=== PATIENT | female | born 1945 | race Caucasian/White ===

== ENCOUNTER → 2019-05-08 | Outpatient (CLI) | payer MEDICARE, OTHER ==
[~2019-05-08] MED LIST: ESTROGEN/METHYL1 TA1 PO; FLEXERIL PO; NEPHROCAPS SOFT1 CAP PO; NORCO 5-325 TA1 EACH PO
--- NOTE | 2019-05-08 16:46 | CARDNUC ---
[place] [address] CARDIAC NUCLEAR IMAGING REPORT Name: REMBERTO MROA Room: [facility]#: [id number] Admission: 05/08/19 Attend Phys: Judson Paz DO Discharge: Date of : 49 Date of Service: 05/08/19 1645 Report #: [id number] THIS REPORT FOR: //name// APPROVED REPORT Study performed: 05/08/2019 14:25:40 Exam: Nuclear Stress Test Indication: Chest pain Patient Location: Out-Patient Stress Tech: César Garner Stress Nurse: Katherine Jacobo R.N. Ht: 5 ft 3 in Wt: 148 lbs BSA: 1.70 m2 BMI: 26.21 Medical History Medical History: Angina, Memory loss/Dementia. Medications: ASA 81 Mg Allergies: Penicillins Cardiac Risk Factors: Age Previous Cardiac Procedures: None Pretest Chest Pain Characteristics: No chest pain Exercise History: Indeterminate Physical Disabilities: Generalized weakness, Dementia. Meds Held (24 hrs): None Stress Test Details Stress Test: Pharmacologic stress was paired with low level exercise. Reason for pharmacologic stress test: Generalized weakness, Dementia.. HR Resting HR: 68 bpm Max Heart Rate (APMHR): 149 bpm Max HR Achieved: 132 bpm Target HR (85% APMHR): 126 bpm % of APMHR: 88 Recovery HR: 93 bpm BP Resting BP: 163/92 mmHg Max BP: 148/90 mmHg ECG Resting ECG: Sinus Rhythm Stress ECG: [place] [address] CARDIAC NUCLEAR IMAGING REPORT Name: REMBERTO MORA Room: [facility]#: [id number] Admission: 05/08/19 Attend Phys: Judson Paz DO Discharge: Date of : 49 Date of Service: 05/08/19 1645 Report #: [id number] Change: None Arrhythmia: VPC's Recovery ECG: Sinus Rhythm Recovery ST Change: None Recovery Arrhythmia: None Clinical Reason for Termination: Completed protocol Stress Symptoms: None Exercise duration: 4 min 00 sec Exercise capacity: 2.30 METs The patient tolerated walking Lexiscan protocol without significant cardiac symptoms. Nurse Comments A 73 year old female presented with recent C/O CP, patient is a poor historian r/t early dementia/Short Term Memory Loss. Patient tolerated walking Lexiscan well with no symptoms verbalized. Recovery unremarkable with PO caffeine, effective. Patient was escorted by staff to Nuclear Medicine for images. Patient was stable with no complaints at that time. Spouse at patient side. Stress ECG Conclusion The baseline 12-lead EKG shows sinus rhythm without significant ST or T wave abnormalities. EKGs obtained during and post Lexiscan infusion show sinus rhythm and sinus tachycardia without significant ST or T wave changes when compared to baseline. There were occasional unifocal premature PVCs in stress. NM EXAM: Myocardial Perfusion REST/STRESS Imaging Protocol: Rest Tc-99m/Stress Tc-99m 1 day Resting Data Rest SPECT myocardial perfusion imaging was performed in supine position 30 minutes following the intravenous injection of 11.3 mCi of Tc-99m Sestamibi. Time of rest injection: 13:05 The images were gated to evaluate regional wall motion and calculate left ventricular ejection fraction. Administration Route: IV Administration Site: Right Arm Pharmacologic Stress Pharmacologic stress test was performed by injecting Regadenoson 0.4 mg IV push followed by the intravenous injection of 35.5 mCi of Tc-99m [place] [address] CARDIAC NUCLEAR IMAGING REPORT Name: REMBERTO MORA Room: [facility]#: [id number] Admission: 05/08/19 Attend Phys: Judson Paz DO Discharge: Date of : 49 Date of Service: 05/08/19 1645 Report #: [id number] Time of stress injection: 14:40 Administration Route: IV Administration Site: Right Arm Heart Rate at time of stress injection: 132 bpm. Gated Stress SPECT was performed 40 minutes after stress injection. The images were gated to evaluate regional wall motion and calculate left ventricular ejection fraction. Prone imaging was performed. Study Quality Study: Good Artifact: No artifact Study Data At rest, the left ventricular ejection fraction was 77%.. Post stress, the left ventricular ejection was 67%.. TID = 1.00. Perfusion Normal left ventricular perfusion. Wall Motion Normal left ventricular wall motion. Nuclear Conclusion ECG Findings: negative for ischemia Clinical Findings: negative for ischemia Nuclear Findings: negative for ischemia Exercise Capacity: not assessed Left Ventricular Function: normal Risk Study: low Myocardial perfusion images show no defect to suggest infarct or ischemia. Left ventricular systolic function appears normal on gated studies. This is a low risk study. <Conclusion> The baseline 12-lead EKG shows sinus rhythm without significant ST or T wave abnormalities. EKGs obtained during and post Lexiscan infusion show sinus rhythm and sinus tachycardia without significant ST or T wave changes when compared to baseline. There were occasional unifocal premature PVCs in stress. <ELECTRONICALLY SIGNED> By: Herve Pathak MD, FACC 05/08/19 1645 1645 1645 Herve Pathak MD, FACC /INF
== END ==
LOC: M.NUC 04-20 09:14
DX: R07.9 Chest pain, unspecified (principal); R51 Headache; R41.3 Other amnesia; Z88.0 Allergy status to penicillin

== ENCOUNTER 2021-08-09 19:43 | Emergency (ER) | payer MEDICARE, OTHER ==
[~2021-08-09] VITALS: Ht 162.6 cm; Wt 66.1 kg
[2021-08-09 20:11] LABS: ABSOLUTE BASOPHILS 0.1 thou/uL (0.0-0.2); ABSOLUTE EOSINOPHILS 0.3 thou/uL (0.0-0.7); ABSOLUTE LYMPHOCYTES 2.2 thou/uL (0.8-5.3); ABSOLUTE MONOCYTES 1.3 thou/uL (0.0-1.2); ABSOLUTE NEUTROPHILS 4.6 thou/uL (1.6-8.1); BASOPHILS 1.1 %; EOSINOPHILS 3.3 %; HEMATOCRIT 42.4 % (37.0-47.0); HEMOGLOBIN 14.2 gm/dL (12.0-15.0); LYMPHOCYTES 26.2 %; MCH 32.7 pg (26.0-34.0); MCHC 33.4 g/dL (28.0-37.0); MCV 97.9 fL (80.0-100.0); MONOCYTES 14.8 %; MPV 7.5 fl. (7.2-11.1); NUCLEATED RBCS 0 /100WBC; PLATELET COUNT* 371 thou/uL (150-400); POLYS 54.6 %; RBC 4.33 mil/uL (4.20-5.00); WBC 8.5 thou/uL (4.0-11.0)
[2021-08-09 20:16] LABS: CALCIUM 8.8 mg/dL (8.5-10.1); CREATININE 0.9 mg/dL (0.6-1.3); POTASSIUM 4.1 mmol/L (3.5-5.1)
[2021-08-09 20:27] LABS: ALBUMIN 3.7 g/dL (3.4-5.0); TOTAL BILIRUBIN 0.4 mg/dL (<0.1-1.0); TOTAL PROTEIN 7.5 g/dL (6.4-8.2)
[2021-08-09 21:34] LABS: URINE BILIRUBIN NEGATIVE (Negative); URINE BLOOD NEGATIVE (Negative); URINE CLARITY CLEAR; URINE COLOR YELLOW; URINE GLUCOSE-RANDOM NEGATIVE (Negative); URINE KETONES NEGATIVE (Negative); URINE LEUKOCYTES-REFLEX NEGATIVE (Negative); URINE NITRITE-REFLEX NEGATIVE (Negative); URINE PROTEIN NEGATIVE (Negative); URINE SPECIFIC GRAVITY <= 1.005 (1.005-1.030); URINE UROBILINOGEN 0.2 E.U./dl (0.2-1.0)
[2021-08-09] MEDS ORDERED: CARAFATE 1 GM TA1 GM PO (23:12)
[2021-08-09 23:18] VITALS: BP 124/78
--- NOTE | 2021-08-10 13:19 | EKG ---
[place] [address] ELECTROCARDIOGRAM REPORT Name: REMBERTO MORA Room: [facility]#: [id number] Admission: 08/09/21 Attend Phys: Discharge: 08/09/21 Date of : 49 Date of Service: 08/09/211948 Report #: [id number] THIS REPORT FOR: //name// [facility] ED Test Date: 2021-08-09 Test Time: 19:49:27 Pat Name: REMBERTO MORA Department: Room: Gender: F Sheep Shearer: ID : [id number] Requested By: Yazmin Gaytan Order Number: [id number] MD: Brayden Barreto Measurements Intervals Springer Rate: 86 P: 80 CO: 137 QRS: 0 QRSD: 92 T: 26 QT: 375 QTc: 449 Interpretive Statements Sinus rhythm Minimal ST depression, lateral leads Compared to ECG 01/14/2010 15:48:29 ST (T wave) deviation now present Electronically Signed On 08-10-2021 13:19:04 [employer] by Brayden Barreto [email or web address] <ELECTRONICALLY SIGNED> By: Brayden Barreto MD, [facility] 08/10/21 1319 48 48 Brayden Barreto MD, [facility] /EPI
== END 2021-08-09 23:21 | disposition home or self-care (01) ==
LOC: M.ERS 19:43
PROVIDERS: Personal Emergency Response Attendant
DX: R07.89 Other chest pain (principal); Z90.710 Acquired absence of both cervix and uterus; Z88.0 Allergy status to penicillin; Z88.7 Allergy status to serum and vaccine